=== PATIENT | female | born 1950 | race Caucasian/White ===

== ENCOUNTER 2018-05-03 15:32 | Emergency (ER) | payer MEDICARE, SELFPAY ==
[2018-05-03 15:35] VITALS: BP 167/102; PULSE 80; RESP 15; TEMP 36.6; O2SAT 98; BMI 26.5
--- NOTE | 2018-05-03 18:29 | DI.CT.S_ITS ---
PROCEDURE: CT ABDOMEN PELVIS WO CON INDICATIONS: L. flank pain, h/o stones TECHNIQUE: Noncontrast 5 mm thick sections acquired from the diaphragms to the symphysis. 5 mm thick coronal and sagittal reformats were then performed. For radiation dose reduction, the following was used: automated exposure control, adjustment of mA and/or kV according to patient size. COMPARISON: None. FINDINGS: Image quality: Excellent. Lung bases: Lung bases are clear. Heart size is normal. Partial visualization of a mass in the right breast measuring 1.8 x 3.9 cm. Urinary system: There is a 6 mm stone in the proximal left ureter just beyond the right ureteropelvic junction, demonstrating CT density 1110 HU, most likely a cystine stone. There is mild left hydronephrosis and perinephric stranding. There are a couple of small nonobstructive left renal calculi measuring 3-4 mm. No right renal stones. Both kidneys are normal in size. Both ureters appear non-dilated throughout their expected courses. Bladder is contracted; no calcified bladder stones. Other solid organs: This is a 9 mm indeterminate hepatic hypodensities, most likely a cyst. Liver is normal in size. Gallbladder is normal. Pancreas is normal in contours. Spleen is normal in size. No adrenal nodules. Peritoneum and bowel: Unenhanced bowel loops demonstrate normal wall thickness and caliber. No free fluid or air. Nodes and vessels: No retroperitoneal or mesenteric adenopathy by size criteria. Aorta and inferior vena cava are normal in caliber. Mild atherosclerosis. Abdominal wall: No ventral hernias. Pelvis: No free pelvic fluid. No inguinal hernias or adenopathy. Bones: No suspicious bony lesions. No vertebral body compression fractures. IMPRESSION: 1. A 6 mm obstruction stone in the proximal left ureter just beyond the left UPJ causing mild left hydronephrosis and perinephric stranding. 2. A couple of 3-4 mm nonobstructive left renal calculi. 3. There is a 1.8 x 3.9 cm mass in the right breast, which is partially visualized. Please correlate with findings on physical examination and mammogram. 4. A 9 mm indeterminate hepatic hypodensity, most likely a cyst. Dictated by: Murray Pratt M.D. on 05/03/2018 at 20:03 Approved by: Murray Pratt M.D. on 05/03/2018 at 20:11
[2018-05-03 18:33] LABS: Bacteria Urine None Seen
--- NOTE | 2018-05-03 18:38 | ED_ITS ---
HPI - Female Genitourinary <Jessica Duran PA-C - Last Filed: 05/03/18 22:41> General Chief complaint: Urogenital-Female Stated complaint: STATES SHE HAS KIDNEY STONES Time Seen by Provider: 05/03/18 18:15 Source: patient Mode of arrival: ambulatory Limitations: no limitations History of Present Illness HPI Narrative: This 67-year-old female was sent in by her PCP today due to micro hematuria and concern for recurrent kidney stone. She states that she 1st had a kidney stone 6 years ago. She had some points are Urology but states these were not treated and she has had chronic left lower quadrant flank pain since then, however pain has been worse maybe since the last month, and acutely worse today. She describes pain as coming from her flank area and radiating down the left side of her abdomen. She went to her PCP today and was given a shot of Toradol. She states that this has helped immensely and she is quite comfortable now. She states that she has not had any gross hematuria but apparently test in office was positive for blood. She states that she has had some nausea today but no vomiting and is not nauseated now. She has been eating and drinking normally. She states that she can't tell whether she has new dysuria as she has this intermittently. She denies any increased urinary frequency, urgency. She denies any abdominal pain elsewhere. Denies any chest pain, dyspnea, pain in her extremities, or other new complaints on systems review Related Data Allergies Allergy/AdvReac Type Severity Reaction Status Date / Time No Known Drug Allergies Allergy Verified 05/03/18 15:35 Review of Systems <Jessica Duran PA-C - Last Filed: 05/03/18 22:41> Review of Systems All systems reviewed & are unremarkable except as noted in HPI and below PFSH <Jessica Duran PA-C - Last Filed: 05/03/18 22:41> Comment: No street drugs Exam <HALIE Newton Last Filed: 05/03/18 22:41> Narrative Exam Narrative: GENERAL APPEARANCE: Patient sitting comfortably, in no distress. LUNGS: Clear to auscultation bilaterally. HEART: Rate and rhythm regular without murmur, normal S1 and S2, no S3 or S4. ABDOMEN: Soft, ND, +BS x 4 quadrants, no CVAT. She has minimal tenderness over the left lateral flank and abdomen without guarding or rebound. No tenderness elsewhere. No palpable mass. EXTREMITIES: No cyanosis, no edema, no calf tenderness DERMATOLOGIC: No exanthem on the trunk NEUROLOGIC: Patient is alert and oriented with normal speech and coordination Initial Vital Signs Initial Vital Signs: Vital Signs Temperature 97.8 F 05/03/18 15:35 Pulse Rate 80 05/03/18 15:35 Respiratory Rate 15 05/03/18 15:35 Blood Pressure 167/102 H 05/03/18 15:35 Pulse Oximetry 98 05/03/18 15:35 <Heriberto Jernigan DO - Last Filed: 05/04/18 05:48> Initial Vital Signs Initial Vital Signs: Vital Signs Temperature 97.8 F 05/03/18 15:35 Pulse Rate 80 05/03/18 15:35 Respiratory Rate 15 05/03/18 15:35 Blood Pressure 167/102 H 05/03/18 15:35 Pulse Oximetry 98 05/03/18 15:35 Course <Jessica Duran PA-C - Last Filed: 05/03/18 22:41> Additional Information: Patient reported feeling markedly improved even prior to arrival here after Toradol injection. She believes that the 6 mm stone is chronic. She has chronic pain. She is urinating normally, has not had fever or vomiting. No evidence of infection on microscopic urinalysis. She was given a prepack of [place] in case needed this evening. She does have ibuprofen to start at home as needed as well. She agrees that the smaller stones may be new and could be the source of her more acute pain. She has chronic pain and agrees to follow up with her PCP to discuss referral to Urology. Also agreed to return if acutely worsening symptoms. Her blood pressure was noted to be elevated prior to discharge however she is asymptomatic. She is late for her evening dose of blood pressure medications and she was quite nervous about missing the [place] home, likely contributing to this Orders Ordered: Discontinued Medications Hydrocodone Bitart/Acetaminophen (Vicodin Prepack) 1 bottle MISC SEEINSTR ONE Stop: 05/03/18 20:22 Last Admin: 05/03/18 20:38 Dose: 1 bottle Vital Signs - 8 hr 05/03/18 15:35 05/03/18 19:43 05/03/18 20:34 Temperature 97.8 F 97.8 F 98.7 F Pulse Rate 80 80 74 Respiratory Rate 15 15 16 Blood Pressure 167/102 H 167/102 H 211/90 H Pulse Oximetry 98 98 96 <Heriberto Jernigan DO - Last Filed: 05/04/18 05:48> Orders Ordered: Discontinued Medications Hydrocodone Bitart/Acetaminophen (Vicodin Prepack) 1 bottle MISC SEEINSTR ONE Stop: 05/03/18 20:22 Last Admin: 05/03/18 20:38 Dose: 1 bottle Vital Signs - 8 hr 05/03/18 15:35 05/03/18 19:43 05/03/18 20:34 Temperature 97.8 F 97.8 F 98.7 F Pulse Rate 80 80 74 Respiratory Rate 15 15 16 Blood Pressure 167/102 H 167/102 H 211/90 H Pulse Oximetry 98 98 96 MDM - Female Genitourinary <Jessica Duran PA-C - Last Filed: 05/03/18 22:41> Lab Data Lab Results 05/03/18 Range/Units 15:38 Urine RBC 10-30/hpf H (0-5/HPF) Urine WBC 0-1/hpf (0-5/HPF) Ur Squamous Epith Cells None seen Urine Bacteria None seen (None) Ur Culture Indicated? Cult not indicated Micro UA Comment Not Reportable Urine Dip Bedside Urine Glucose Negative Bedside Urine Bilirubin - Negative Bedside Urine Ketone - Negative Urine Specific [place] 1.020 Bedside Urine Occult Blood +++ Bedside Urine pH 6.0 Bedside Urine Protein - Negative Bedside Urine Urobilinogen - Negative Bedside Urine Nitrite - Negative Bedside Urine Leukocytes - Negative Esterase <DO Chin Shaikh Last Filed: 05/04/18 05:48> Lab Data Lab Results 05/03/18 Range/Units 15:38 Urine RBC 10-30/hpf H (0-5/HPF) Urine WBC 0-1/hpf (0-5/HPF) Ur Squamous Epith Cells None seen Urine Bacteria None seen (None) Ur Culture Indicated? Cult not indicated Micro UA Comment Not Reportable Urine Dip Bedside Urine Glucose Negative Bedside Urine Bilirubin - Negative Bedside Urine Ketone - Negative Urine Specific [place] 1.020 Bedside Urine Occult Blood +++ Bedside Urine pH 6.0 Bedside Urine Protein - Negative Bedside Urine Urobilinogen - Negative Bedside Urine Nitrite - Negative Bedside Urine Leukocytes - Negative Esterase Discharge Plan Departure Patient Disposition: Home Clinical Impression: Kidney stone on left side Discharge Date/Time: 05/03/18 20:38 Interventions: ED Discharge Assessment Last Done: 05/03/18 20:34 Instructions: Kidney Stones -- Adult, DI for Kidney Stones Activity Restrictions/Additional Instructions: Please return as we talked about if you have any acutely worsening symptoms. Otherwise, you can take 600-800 mg of ibuprofen (3-4 [id number] tablets) every 8 hr with food as needed for pain. This is similar to the Toradol injection that you got earlier today. You can add the prescription hydrocodone/ acetaminophen tablets that we gave you tonight as needed, but do not drive as they may make you sleepy. From what you have described to me the larger stone in your ureter on the left side may be chronic, however it has caused you consistent pain and needs to be treated, so please talk with your PCP tomorrow about getting a urology referral. You also have a couple of small stones on that side that are not blocking and may be new. There was a coincidental right breast mass that was noted on the CT scan. It was only partly visible and not clear whether this was a cyst. Please also follow up with your PCP for this and make sure you get an exam and referral for mammogram Referrals: Austin Lovett MD [Primary Care Provider] - <Heriberto Jernigan DO - Last Filed: 05/04/18 05:48> Cosign ED Attending Emre Attestation: I was immediately available in the department for consultation. Documentation has been reviewed. I agree with assessment and plan.
[2018-05-03 18:40] LABS: Culture Indicated Urine Cult Not Indicated; RBC Urine 10-30/HPF (0-5/HPF); Squamous Epithelial Cell Urine None Seen; WBC Urine 0-1/HPF (0-5/HPF)
[2018-05-03 19:43] VITALS: BP 167/102; PULSE 80; RESP 15; TEMP 36.6; O2SAT 98; BMI 26.5
[2018-05-03 20:34] VITALS: BP 211/90; PULSE 74; RESP 16; TEMP 37.1; O2SAT 96
[2018-05-03] MEDS: HYDROCODONE/ACET 5/325 PREPACK 1 BOTTLE MISC (20:38)
== END 2018-05-03 20:38 | disposition home or self-care (01) ==
PROVIDERS: Emergency Provider Internal Medicine; Family Provider Family Medicine; PCP Family Medicine
DX: N20.0 Calculus of kidney (principal)
CPT/HCPCS: 74176; 81003; 81015; 99282; 99284

== ENCOUNTER 2018-05-06 13:28 | Emergency (ER) | payer MEDICARE, SELFPAY ==
--- NOTE | 2018-05-06 14:11 | ED.FEMALEGU ---
HPI - Female Genitourinary General Chief complaint: Urogenital-Female Stated complaint: states kidney stones/pain/vomitting Time Seen by Provider: 05/06/18 14:03 Source: patient and family Mode of arrival: ambulatory Limitations: no limitations History of Present Illness HPI Narrative: This is a 67-year-old female who comes to the emergency department with left flank and abdominal pain. Patient started having symptoms last Monday. She was seen at the [facility] on [facility] given a shot of Toradol which did improve her symptoms significantly. She had a CT of her abdomen and pelvis which did show a 6 mm stone. In the left ureteral vesicle junction. Patient has continued to have pain since then. She has tried [place] along with ibuprofen which helps some but not significantly. She was only given 4 tablets and has taken them all. She has had some nausea and vomiting today. She has not had any fevers. She has not had any issues with bowel movements or urination. She has had kidney stones before she does not see a urologist regularly. Patient does have a history of hypertension and states her blood pressures been very high when she is in pain he comes down with her pain is improved Related Data Previous Rx's Medication Instructions Recorded hydrocodone-acetaminophen [Lism[place]] 1 tab PO Q6H PRN #14 tab 05/06/18 ketorolac 10 mg PO Q6H PRN 2 Days #10 tab 05/06/18 tamsulosin [Flomax] 0.4 mg PO DAILY #7 cap 05/06/18 Allergies Allergy/AdvReac Type Severity Reaction Status Date / Time No Known Drug Allergies Allergy Verified 05/03/18 15:35 Review of Systems Review of Systems All systems reviewed & are unremarkable except as noted in HPI and below Constitutional Denies fever(s) and Denies headache(s) ENT Ears, Nose, Mouth, and Throat: Denies headache(s) Cardiovascular Denies chest pain, Denies syncope, Denies irregular heart rhythm, Denies lightheadedness, Denies palpitations, Denies dyspnea, Denies dyspnea on exertion and Denies orthopnea Respiratory Denies cough, Denies dyspnea, Denies dyspnea on exertion and Denies wheezing Gastrointestinal Gastrointestinal: Reports abdominal pain (Left flank and lower abdominal pain), Denies change in bowel habits, Denies diarrhea, Denies nausea and Denies vomiting Genitourinary Denies hematuria, Reports flank pain, Denies urinary incontinence and Denies urinary urgency Neurologic Denies syncope and Denies headache(s) Endocrine Denies palpitations Allergic/Immunologic Denies wheezing FOR[facility]LY [facility], [facility] Medical History G-6-PD deficiency (Chronic) HTN (hypertension) (Chronic) History of kidney stones (Chronic) Surgical History History of appendectomy (Resolved) History of hysterectomy for benign disease (Resolved) Social History marital status: details: Lives on [facility] household members: spouse Smoking Status: Never smoker Exam Initial Vital Signs Initial Vital Signs: Vital Signs Temperature 98.2 F 05/06/18 14:24 Pulse Rate 74 05/06/18 14:24 Respiratory Rate 22 05/06/18 14:24 Blood Pressure 234/120 H 05/06/18 14:24 Pulse Oximetry 100 05/06/18 14:24 Const General: cooperative, well developed, in distress (Moderate) and No diaphoretic Nutritional Appearance: well nourished Orientation: alert, awake, oriented x3 and not confused Resp Effort & Inspection: normal respiratory effort, able to speak in complete sentences, no respiratory distress and no use of accessory muscles Auscultation: clear to auscultation bilaterally, no rales, no rhonchi and no wheezes Cardio Rate: regular rate Rhythm: regular rhythm Heart Sounds: no click, no gallops, no murmurs and no rubs Bruits: no abdominal aortic bruits Pulses: normal peripheral pulses GI Inspection: non-distended Palpation: soft, no hepatosplenomegaly, No guarding, No pulsatile mass and No tender Auscultation: normal bowel sounds General: bimanual renal exam normal bilaterally and No CVA tenderness Course Orders Ordered: ED Orders 05/06/18 13:59 Urine Microscopic Stat 05/06/18 14:10 Complete Blood Count AUTO DIFF Stat Comprehensive Metabolic Panel Stat Lipase Stat 05/06/18 14:44 US renal complete Stat Discontinued Medications Hydromorphone HCl (Dilaudid) 0.5 mg IV NOW ONE Stop: 05/06/18 16:45 Last Admin: 05/06/18 16:58 Dose: 0.5 mg Sodium Chloride (Normal Saline 0.9%) 1,000 mls @ 150 mls/hr IV CONT ARACELI Last Infusion: 05/06/18 16:37 Dose: 0 mls/hr Admin: 05/06/18 14:31 Dose: 150 mls/hr Ketorolac Tromethamine (Toradol) 30 mg IV NOW ONE Stop: 05/06/18 14:12 Last Admin: 05/06/18 14:30 Dose: 30 mg Ondansetron HCl (Zofran) 4 mg IV NOW ONE Stop: 05/06/18 14:12 Last Admin: 05/06/18 14:30 Dose: 4 mg Consultations Consultation #1: [place] of urology will follow up with patient. Office will call tomorrow to set up an appointment. Plan for Flomax 0.4 mg, pain medication and patient to return to the ED if she is having rapidly worsening symptoms. We reviewed labs, imaging as well as plan to send a disc with patient with images. Time: 16:30 Vital Signs - 8 hr 05/06/18 14:24 05/06/18 15:25 05/06/18 17:00 Temperature 98.2 F Pulse Rate 74 72 66 Respiratory Rate 22 16 14 Blood Pressure 234/120 H Blood Pressure [Left Arm] 175/95 H 199/93 H Pulse Oximetry 100 96 94 05/06/18 17:56 Temperature Pulse Rate 72 Respiratory Rate Blood Pressure Blood Pressure [Left Arm] 142/91 H Pulse Oximetry 97 MDM - Female Genitourinary Lab Data Result diagrams: 05/06/18 14:10 05/06/18 14:10 Lab Results 05/06/18 05/06/18 05/06/18 Range/Units 13:59 14:10 14:10 WBC 14.3 H (4.5-11.0) X10^3/uL RBC 5.42 H (4.0-5.2) X10^6/uL Hgb 16.5 H (12.0-16.0) g/dL Hct 46.9 H (36-46) % MCV 86.7 (80-100) fL MCH 30.4 (26-34) PG MCHC 35.1 (30-36) % RDW 13.5 (11.6-14.8) % Plt Count 252 (150-400) X10^3/uL Neut % (Auto) 82.8 H (50-75) % Lymph % (Auto) 10.7 L (25-40) % [place] % (Auto) 6.0 (3-14) % Eos % (Auto) 0.3 L (2-4) % Baso % (Auto) 0.2 (0-2) % Neut # (Auto) 48166 H (6287-8951) /uL Sodium 141 (137-145) mmol/L Potassium 4.3 (3.4-5.1) mmol/L Chloride 100 (98-107) mmol/L Carbon Dioxide 24 (22-32) mmol/L BUN 20 H (7-17) mg/dL Creatinine 1.10 H (0.52-1.04) mg/dL Estimated GFR 49.7 L (>60) mL/min BUN/Creatinine Ratio 18.2 (6-22) Glucose 111 H (80-110) mg/dL Calcium 9.9 (8.4-10.2) mg/dL Total Bilirubin 1.1 (0.2-1.3) mg/dL AST 34 (14-36) IU/L ALT 30 (9-52) IU/L Alkaline Phosphatase 116 (38-126) U/L Total Protein 8.2 (6.3-8.2) g/dL Albumin 4.8 (3.5-5.0) g/dL Globulin 3.4 (1.7-4.1) g/dL Albumin/Globulin Ratio 1.4 (1.0-2.8) Lipase 196 (23-300) U/L Urine RBC 10-30/hpf H (0-5/HPF) Urine WBC None seen (0-5/HPF) Ur Squamous Epith Cells 1-5 /hpf Urine Bacteria None seen (None) Ur Culture Indicated? Cult not indicated Micro UA Comment Not Reportable Urine Dip Bedside Urine Glucose Negative Bedside Urine Bilirubin - Negative Bedside Urine Ketone ++ 40 Urine Specific [place] 1.015 Bedside Urine Occult Blood + Bedside Urine pH 6.5 Bedside Urine Protein + 30 Bedside Urine Urobilinogen - Negative Bedside Urine Nitrite - Negative Bedside Urine Leukocytes - Negative Esterase Imaging Data CT scan - abdomen: Radiologist's impression: [address] [address] [address] Scan Report Signed Patient: Gali Rogers RMR#: [id number] : 2Acct:[id number] Age/Sex: 67 / FDate of Service: 05/03/18 Loc: ED Accession Number: [id number] Procedure: CT kidney ureter bladder (KUB) Ordering Provider: Jessica Duran P.A-C PROCEDURE: CT ABDOMEN PELVIS WO CON INDICATIONS: L. flank pain, h/o stones TECHNIQUE: Noncontrast 5 mm thick sections acquired from the diaphragms to the symphysis. 5 mm thick coronal and sagittal reformats were then performed. For radiation dose reduction, the following was used: automated exposure control, adjustment of mA and/or kV according to patient size. COMPARISON: None. FINDINGS: Image quality: Excellent. Lung bases: Lung bases are clear. Heart size is normal. Partial visualization of a mass in the right breast measuring 1.8 x 3.9 cm. Urinary system: There is a 6 mm stone in the proximal left ureter just beyond the right ureteropelvic junction, demonstrating CT density 1110 HU, most likely a cystine stone. There is mild left hydronephrosis and perinephric stranding. There are a couple of small nonobstructive left renal calculi measuring 3-4 mm. No right renal stones. Both kidneys are normal in size. Both ureters appear non-dilated throughout their expected courses. Bladder is contracted; no calcified bladder stones. Other solid organs: This is a 9 mm indeterminate hepatic hypodensities, most likely a cyst. Liver is normal in size. Gallbladder is normal. Pancreas is normal in contours. Spleen is normal in size. No adrenal nodules. Peritoneum and bowel: Unenhanced bowel loops demonstrate normal wall thickness and caliber. No free fluid or air. Nodes and vessels: No retroperitoneal or mesenteric adenopathy by size criteria. Aorta and inferior vena cava are normal in caliber. Mild atherosclerosis. Abdominal wall: No ventral hernias. Pelvis: No free pelvic fluid. No inguinal hernias or adenopathy. Bones: No suspicious bony lesions. No vertebral body compression fractures. IMPRESSION: 1. A 6 mm obstruction stone in the proximal left ureter just beyond the left UPJ causing mild left hydronephrosis and perinephric stranding. 2. A couple of 3-4 mm nonobstructive left renal calculi. 3. There is a 1.8 x 3.9 cm mass in the right breast, which is partially visualized. Please correlate with findings on physical examination and mammogram. 4. A 9 mm indeterminate hepatic hypodensity, most likely a cyst. Dictated by: Murray Pratt M.D. on 05/03/2018 at 20:03 Approved by: Murray Pratt M.D. on 05/03/2018 at 20:11 Renal US: Radiologist's impression: [address] [address] Ultrasound Report Signed Patient: Gali Rogers RMR#: [id number] : 2Acct:[id number] Age/Sex: 67 / FDate of Service: 05/06/18 Loc: ED Accession Number: [id number] Procedure: US renal complete Ordering Provider: Tarsha Gibson D.O. PROCEDURE: US RENAL COMPLETE INDICATIONS: LEFT FLANK PAIN; KNOWN LEFT UVJ STONE TECHNIQUE: Real-time scanning was performed of the kidneys and bladder, with image documentation. COMPARISON: [facility], CT, CT ABDOMEN PELVIS WO CON, 05/03/2018, 18:42. FINDINGS: Kidneys: Kidneys are normal in size. Right kidney measures 10.1 cm long; left kidney measures 1.5 cm long. Right renal cortical thickness is 10.3 cm; left renal cortical thickness is 1.7 cm. Renal cortical echotexture is normal. No right hydronephrosis. There is mild left hydronephrosis. The proximal left ureter is dilated. The ureteral pelvic stone visualized on the recent CT dated 05/03/18 is not visualized on the current study. Bladder: Pre-void bladder volume is 89 mL. Post-void residual is zero mL. Pre-void images demonstrate no intraluminal masses or stones. On pre-void images, the right ureteral jet is noted with color Doppler interrogation. (Of note, ureteral jets may not be detectable in up to 25% of cases due to insufficient differences in specific gravity between ureteral and bladder urine). Miscellaneous: No free pelvic fluid. IMPRESSION: Mild left hydronephrosis and hydroureter. The obstructing calculus described on the recent CT is not visualized. Dictated by: Agnieszka Wiseman M.D. on 05/06/2018 at 15:47 Approved by: Agnieszka Wiseman M.D. on 05/06/2018 at 15:50 MDM Narrative Medical decision making narrative: patient's lab work shows a slightly elevated white count at 14 %period% creatinine is 1.1 and BUN is 20. Patient has red blood cells but no leuks or nitrates in her urine. She received Toradol which was quite helpful. She had a CT on 05/03 which showed a 6 mm stone in the left UVJ. Today ultrasound does not show the stone itself but does show mild hydro. Patient continues to be quite uncomfortable although does respond to Toradol well. As it has been 3 or 4 days she would likely benefit from follow-up with Urology. Discharge Plan Departure Patient Disposition: Home Clinical Impression: Kidney stone on left side Discharge Date/Time: 05/06/18 18:03 Interventions: ED Discharge Assessment Last Done: 05/06/18 18:03 Instructions: DI for Kidney Stones Activity Restrictions/Additional Instructions: Follow up with the doctor cell early and with the urology from [facility]. The office should be calling you tomorrow to set up follow-up either Monday, Monday or . take medications as prescribed. Take Flomax once daily until gone. You may take pain medications as prescribed. narcotic pain medications can make you sleepy do not drive, perform hazards activities or make any major decisions while taking it. Return to the emergency department for fevers greater than 100.4, persistent vomiting, back or flank pain that is rapidly increasing or intractable to medication. Prescriptions: New hydrocodone-acetaminophen [[place]] 5-325 mg tablet 1 tab PO Q6H PRN (Reason: pain) Qty: 14 RF: 0 tamsulosin [Flomax] 0.4 mg capsule 0.4 mg PO DAILY Qty: 7 RF: 0 ketorolac 10 mg tablet 10 mg PO Q6H PRN (Reason: pain) 2 Days Qty: 10 RF: 0 Referrals: Austin Lovett MD [Primary Care Provider] -
[2018-05-06 14:24] VITALS: BP 234/120; PULSE 74; RESP 22; TEMP 36.8; O2SAT 100; BMI 26.5
[2018-05-06 14:28] LABS: Add Manual Diff / Slide Review NO; Basophils Percent Auto 0.2 % (0-2); Eosinophils Percent Auto 0.3 % (2-4); Hematocrit 46.9 % (36-46); Hemoglobin 16.5 g/dL (12.0-16.0); Lymphocytes Percent Auto 10.7 % (25-40); Mean Corpuscular HGB Conc 35.1 % (30-36); Mean Corpuscular Hemoglobin 30.4 PG (26-34); Mean Corpuscular Volume 86.7 fL (80-100); Neutrophils Absolute Auto 11800 /uL (3000-5900); Neutrophils Percent Auto 82.8 % (50-75); Platelet Count 252 X10^3/uL (150-400); Red Blood Cell Count 5.42 X10^6/uL (4.0-5.2); Red Cell Distribution Width 13.5 % (11.6-14.8); White Blood Cell Count 14.3 X10^3/uL (4.5-11.0)
[2018-05-06] MEDS: ONDANSETRON 4 MG/2 ML INJ IV (14:30)
[2018-05-06] MEDS: KETOROLAC 60 MG/2 ML VIAL 30 MG IV (14:30)
[2018-05-06 14:31] LABS: Bacteria Urine None Seen; WBC Urine None Seen (0-5/HPF)
[2018-05-06] MEDS: SODIUM CHLORIDE 0.9% 1,000 ML 150 ML IV (14:31)
[2018-05-06 14:37] LABS: Culture Indicated Urine Cult Not Indicated; RBC Urine 10-30/HPF (0-5/HPF); Squamous Epithelial Cell Urine 1-5 /HPF
[2018-05-06 14:39] LABS: Alanine Aminotransferase 30 IU/L (9-52); Albumin 4.8 g/dL (3.5-5.0); Albumin Globulin Ratio 1.4 (1.0-2.8); Alkaline Phosphatase 116 U/L (38-126); Aspartate Aminotransferase 34 IU/L (14-36); BUN Creatinine Ratio 18.2 (6-22); Bilirubin Total 1.1 mg/dL (0.2-1.3); Blood Urea Nitrogen 20 mg/dL (7-17); Calcium 9.9 mg/dL (8.4-10.2); Carbon Dioxide 24 mmol/L (22-32); Chloride 100 mmol/L (98-107); Estimated Glomerular Filt Rate 49.7 mL/min (>60); Globulin 3.4 g/dL (1.7-4.1); Glucose 111 mg/dL (80-110); HEMOLYSIS 33 (0-50); Lipase 196 U/L (23-300); Potassium 4.3 mmol/L (3.4-5.1); Sodium 141 mmol/L (137-145); Total Protein 8.2 g/dL (6.3-8.2)
--- NOTE | 2018-05-06 14:44 | DI.US.S_ITS ---
PROCEDURE: US RENAL COMPLETE INDICATIONS: LEFT FLANK PAIN; KNOWN LEFT UVJ STONE TECHNIQUE: Real-time scanning was performed of the kidneys and bladder, with image documentation. COMPARISON: [facility], CT, CT ABDOMEN PELVIS WO CON, 05/03/2018, 18:42. FINDINGS: Kidneys: Kidneys are normal in size. Right kidney measures 10.1 cm long; left kidney measures 1.5 cm long. Right renal cortical thickness is 10.3 cm; left renal cortical thickness is 1.7 cm. Renal cortical echotexture is normal. No right hydronephrosis. There is mild left hydronephrosis. The proximal left ureter is dilated. The ureteral pelvic stone visualized on the recent CT dated 05/03/18 is not visualized on the current study. Bladder: Pre-void bladder volume is 89 mL. Post-void residual is zero mL. Pre-void images demonstrate no intraluminal masses or stones. On pre-void images, the right ureteral jet is noted with color Doppler interrogation. (Of note, ureteral jets may not be detectable in up to 25% of cases due to insufficient differences in specific gravity between ureteral and bladder urine). Miscellaneous: No free pelvic fluid. IMPRESSION: Mild left hydronephrosis and hydroureter. The obstructing calculus described on the recent CT is not visualized. Dictated by: Agnieszka Wiseman M.D. on 05/06/2018 at 15:47 Approved by: Agnieszka Wiseman M.D. on 05/06/2018 at 15:50
[2018-05-06 15:25] VITALS: BP 175/95; PULSE 72; RESP 16; O2SAT 96
[2018-05-06] MEDS: HYDROMORPHONE 1 MG INJ 0.5 MG IV (16:58)
[2018-05-06 17:00] VITALS: BP 199/93; PULSE 66; RESP 14; O2SAT 94
[2018-05-06 17:56] VITALS: BP 142/91; PULSE 72; O2SAT 97
== END 2018-05-06 18:03 | disposition home or self-care (01) ==
PROVIDERS: Emergency Provider Emergency Medicine; Family Provider Family Medicine; PCP Family Medicine
DX: N20.0 Calculus of kidney (principal)
CPT/HCPCS: 36591; 76770; 80053; 81003; 81015; 83690; 85025; 96361; 96374; 96375; 99283; 99284; J1170; J1885; J2405